=== PATIENT | female | born 1985 | race Caucasian/White ===

== ENCOUNTER 2019-12-31 23:44 | Emergency (ER) | payer MEDICAID ==
--- NOTE | 2020-01-01 00:26 | EDM.PDOC ---
ED HPI GENERAL MEDICAL PROBLEM - General Chief Complaint: General Stated Complaint: SORE THROAT, CHILLS,COUGH Time Seen by Provider: 01/01/20 00:20 Source of Information: Reports: Patient, Family History Limitations: Reports: No Limitations - History of Present Illness INITIAL COMMENTS - FREE TEXT/NARRATIVE: 34-year-old female, 31 weeks gestation presents with 2 days of sore throat, cough, mild headache and low-grade fever. Her main complaint is her sore throat. She is interested in a strep throat test. No shortness of breath. 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 Pain Score (Numeric/FACES): 8 - Related Data Allergies Allergy/AdvReac Type Severity Reaction Status Date / Time No Known Allergies Allergy Verified 01/01/20 00:12 Home Meds: Home Meds Cholecalciferol (Vitamin D3) [Vitamin D] 5,000 unit PO DAILY 01/01/20 [History] 95/Iron Fum/Folic/Dha [ + Dha Combo Pack] 1 tab PO DAILY [History] Past Medical History [employer] History: Reports: - Infectious Disease History Infectious Disease History: Reports: Chicken Pox - Past Surgical History HEENT Surgical History: Reports: Oral Surgery Social & Family History - Tobacco Use Smoking Status *Q: Never Smoker - Caffeine Use Caffeine Use: Reports: Coffee - Recreational Drug Use Recreational Drug Use: No ED ROS GENERAL - Review of Systems Review Of Systems: See Below Constitutional: Reports: Fever, Chills, Malaise HEENT: Reports: Ear Pain, Throat Pain Respiratory: Reports: Cough. Denies: Shortness of Breath Cardiovascular: Denies: Chest Pain GI/Abdominal: Denies: Nausea, Vomiting Skin: Denies: Rash Neurological: Reports: Headache ED EXAM, GENERAL - Physical Exam Exam: See Below Exam Limited By: No Limitations General Appearance: Alert, No Apparent Distress Eye Exam: Bilateral Eye: Normal Inspection Ears: Normal TMs Throat/Mouth: Normal Inspection Head: Atraumatic Neck: No: Lymphadenopathy (R), Lymphadenopathy (L) Respiratory/Chest: No Respiratory Distress, Lungs Clear, Other (A few expiratory wheezes are heard when she coughs, otherwise normal lung sounds) Cardiovascular: Regular Rate, Rhythm Neurological: Alert, Oriented Psychiatric: Normal Affect, Normal Mood Course - Vital Signs Last Recorded V/S: Last Vital Signs Temp 100.9 F H 01/01/20 00:14 Pulse 95 01/01/20 00:14 Resp 16 01/01/20 00:14 BP 105/66 01/01/20 00:14 Pulse Ox 100 01/01/20 00:14 - Orders/Labs/Meds Orders: Active Orders 24 hr Category Date Time Status CULTURE STREP A CONFIRMATION [RM] Routine Lab 01/01/20 00:28 Results STREP SCRN A RAPID W CULT CONF [RM] Routine Lab 01/01/20 00:28 Results Isolation [COMM] Routine Oth 01/01/20 00:25 Ordered Meds: Medications Discontinued Medications Generic Name Dose Route Start Last Admin Trade Name Gerald PRN Reason Stop Dose Admin Acetaminophen 1,000 mg 01/01/20 00:57 01/01/20 01:15 Tylenol Extra Strength PO 01/01/20 00:58 1,000 mg ONETIME ONE Administration Lidocaine HCl 15 ml 01/01/20 00:37 01/01/20 00:51 Xylocaine 2% Viscous PO 01/01/20 00:38 15 ml ONETIME ONE Administration Lidocaine HCl 15 ml 01/01/20 01:20 01/01/20 01:33 Xylocaine 2% Viscous PO 01/01/20 01:21 15 ml ONETIME ONE Administration - Re-Assessments/Exams Free Text/Narrative Re-Assessment/Exam: 01/01/20 00:59 Influenza antigen testing was obtained as well as a strep test. Patient was given liquid viscous lidocaine to swish and swallow for throat pain. 01/01/20 01:22 Strep was negative, however influenza B was positive. Patient did get some relief from the viscous lidocaine. She was also given 1000 mg of acetaminophen p.o. A prescription for additional viscous lidocaine was given for as needed pain, she was encouraged to rest, get fluids and increase activity as tolerated. Departure - Departure Time of Disposition: 01:39 Disposition: Home, Self-Care 01 Clinical Impression: Influenza B - Discharge Information Instructions: Influenza, Adult, [id number] Referrals: PCP,None [Primary Care Provider] - Forms: ED Department Discharge Care Plan Goals: Acetaminophen, viscous lidocaine and fluids will be helpful. Lots of rest and increase activity as tolerated. Return if worsening or concerns, especially difficulty breathing. Sepsis Event Note - Evaluation Sepsis Screening Result: Possible Sepsis Risk - Focused Exam Vital Signs: Vital Signs Temp Pulse Resp BP Pulse Ox 01/01/20 00:14 100.9 F H 95 16 105/66 100 01/01/20 00:06 100.9 F H 95 16 105/66 100 Date Exam was Performed: 01/01/20 Time Exam was Performed: 06:42 - My Orders Last 24 Hours: My Active Orders 01/01/20 00:25 Isolation [COMM] Routine 01/01/20 00:28 CULTURE STREP A CONFIRMATION [RM] Routine STREP SCRN A RAPID W CULT CONF [RM] Routine - Assessment/Plan Last 24 Hours: My Active Orders 01/01/20 00:25 Isolation [COMM] Routine 01/01/20 00:28 CULTURE STREP A CONFIRMATION [RM] Routine STREP SCRN A RAPID W CULT CONF [RM] Routine
[2020-01-01] MEDS ORDERED: Lidocaine 2% Viscous Solution 15 ML Cup PO ONE ×2 (00:37→01:20)
[2020-01-01] MEDS ORDERED: Acetaminophen 500 MG Tab PO ONE (00:57)
== END 2020-01-01 01:39 | disposition home or self-care (01) ==
LOC: JP.ED 23:44
DX: O99.513 Diseases of the respiratory system complicating pregnancy, third trimester (principal); J10.1 Influenza due to other identified influenza virus with other respiratory manifestations; Z3A.31 31 weeks gestation of pregnancy
CPT/HCPCS: 87081; 87804; 87880; 99282; 99283; A9270